=== PATIENT | female | born 1950 | race African-American/Black ===

== ENCOUNTER 2017-05-17 07:11 | Day surgery (SDC) | payer MEDICARE, OTHER ==
[~2017-05-17 07:11] MED LIST: BUPIVACAINE HCL 0.75% INJ/PF (7.5 MG/1 ML) 10 ML SDV OD PRN; FENTANYL CITRATE INJ/PF 100 MCG/2 ML AMPUL ONE; KETOROLAC TROMETHAMINE 0.45% 4 DROP/0.4 ML DROPERETTE OD PRN; LIDOCAINE 4% INJ/PF (40 MG/ML) 5 ML AMPUL OD PRN; MIDAZOLAM 2 MG/2 ML INJ ONE; ONDANSETRON HCL INJ/PF 4 MG/2 ML SDV ONE
[2017-05-17] MEDS ORDERED: LIDOCAINE 1% INJ-PF (10 MG/ML) 30 ML SDV ONE (07:34)
[2017-05-17] MEDS ORDERED: PHENYLEPHRINE/KETOROLAC 1%-0.3% 4 ML VIAL ONE (07:34)
[2017-05-17] MEDS ORDERED: CHONDR SU A NA/HYALUR INTRAOC KIT (SURGICARE) ONE (07:35)
[2017-05-17] MEDS ORDERED: HYALURONATE SODIUM SYRINGE 0.55 ML ONE (07:36)
[2017-05-17] MEDS: TETRACAINE HCL 0.5% OPH SOLN 0.6 ML DROPERETTE OD PRN ×2 (07:51→08:19)
[2017-05-17] MEDS: CYCLOPENTOLATE 0.2%/PHENYLEPHRINE 1% OPH SOLN 2 ML OD PRN ×3 (07:51→08:08)
[2017-05-17] MEDS: BESIFLOXACIN HCL 0.6% OPH SUSP 5 ML BOTTLE OD PRN ×4 (07:51→09:26)
[2017-05-17] MEDS: TROPICAMIDE 1% OPH SOLN 3 ML OD PRN ×3 (07:51→08:08)
--- NOTE | 2017-05-18 16:12 | [facility] OPERATIVE REPORT E ---
[facility] Operative Report NAME: KYLE HENLEY AGE: 66Y DATE OF SURGERY: 05/17/2017 ROOM: PREOPERATIVE DIAGNOSES: 1. Cataract, right eye. 2. Glaucoma, right eye. END OF DICTATION DICTATING PHYSICIAN: ANDRE YANES M.D. [id number] PHY#: [id number] ID: [id number] JOB#: [id number] ACCT: [id number] cc:ANDRE YANES M.D. >
--- NOTE | 2017-06-06 18:47 | [facility] DISCHARGE SUMMARY E ---
[facility] Discharge Summary NAME: KYLE HENLEY AGE: 66Y ADMITTED: 05/17/2017 DISCHARGED: 05/17/2017 PREOPERATIVE DIAGNOSES: 1. CATARACT, RIGHT EYE. 2. MILD PRIMARY OPEN ANGLE GLAUCOMA, RIGHT EYE. POSTOPERATIVE DIAGNOSES: 1. CATARACT, RIGHT EYE. 2. MILD PRIMARY OPEN ANGLE GLAUCOMA, RIGHT EYE. HISTORY OF PRESENT ILLNESS AND HOSPITAL COURSE: The patient is a 66-year-old lady who underwent uneventful cataract extraction with intraocular lens implant with insertion of iStent in the right eye, on 05/17/2017. She will be discharged to home. She is instructed to resume preoperative medications, including her timolol drops twice a day, to use Durezol, Ilevro, and Besivance at 3:00 p.m. and 8:00 p.m., and to followup in my office in 1 day. DICTATING PHYSICIAN: ANDRE YANES M.D. [id number] PHY#: [id number] ID: [id number] JOB#: [id number] ACCT: [id number] cc:ANDRE YANES M.D. >
--- NOTE | 2017-06-06 18:47 | [facility] OPERATIVE REPORT E ---
[facility] Operative Report NAME: KYLE HENLEY AGE: 66Y DATE OF SURGERY: 05/17/2017 ROOM: PREOPERATIVE DIAGNOSES: 1. CATARACT, RIGHT EYE. 2. MILD PRIMARY OPEN ANGLE GLAUCOMA, RIGHT EYE. POSTOPERATIVE DIAGNOSES: 1. CATARACT, RIGHT EYE. 2. MILD PRIMARY OPEN ANGLE GLAUCOMA, RIGHT EYE. PROCEDURE PERFORMED: Cataract extraction with intraocular lens implant, right eye, with addition of iStent, right eye. SURGEON: ANDRE YANES M.D. ANESTHESIA: Topical with MAC. INDICATION FOR SURGERY: Difficulty reading road signs and scroll on TV, nighttime glare. DESCRIPTION OF PROCEDURE: The patient was brought to the operating room and topical anesthesia was administered. This consisted of instrument wipe pledgets soaked in a solution of 4% Xylocaine mixed with 0.75% Marcaine in a 1:2 ratio. A 2 x 1 cm pledget was placed in the superior fornix. A 1 x 1 cm pledget was placed in the inferior fornix. The eye was patched shut for 5 minutes. The patch was removed. The eye was sterilely prepped and draped in the usual manner. Lid speculum was placed in the eye. 4-0 black silk sutures were placed around the superior and the inferior rectus muscles to be used as traction. A paracentesis was created at the 6 o'clock position and 0.5 mL of intraocular lidocaine was injected into the eye. A clear corneal incision was made at the temporal position. Viscoelastic was placed in the anterior chamber. An anterior capsulotomy was performed using Utrata forceps in a capsulorrhexis fashion. Hydrodissection and hydrodelineation were performed. Phacoemulsification was performed in [id number] technique. A total of 5.24 CDE total phaco time was used. Following this, the I/A unit was used to remove residual cortex. Viscoelastic was injected into the capsular bag. Intraocular lens model SN60WF, 21.0 diopters, serial number [id number], was injected into the capsular bag. Additional Provist was placed in the anterior chamber. The microscope was rotated 30 degrees as well as the head was rotated 30 degrees. The Gonio prism was placed on the eye and visualization of the anterior chamber angle was achieved with good visualization of the trabecular meshwork. The iStent was opened and placed in the eye and the iStent was placed into the trabecular mesh work. The iStent was positioned nicely with blood reflux through the lumen. The I/A unit was used to remove residual viscoelastic. The wound was seen to be watertight under high and low pressure, and no sutures were placed. The 4-0 black silk sutures and lid speculum were removed. The eye was shielded after Besivance drops were placed in the eye. The patient tolerated the procedure well and was sent to the recovery room in good condition. DICTATING PHYSICIAN: ANDRE YANES M.D. [id number] PHY#: [id number] ID: [id number] JOB#: [id number] ACCT: [id number] cc:ANDRE YANES M.D. > MTDD
== END 2017-05-17 10:18 | disposition home or self-care (01) ==
LOC: SC 07:11
PROVIDERS: ATTEND Ophthalmology
PROC: 089230Z Drainage of Right Anterior Chamber with Drainage Device, Percutaneous Approach (ICD-10-PCS; 2017-05-17)
PROC: 08RJ3JZ Replacement of Right Lens with Synthetic Substitute, Percutaneous Approach (ICD-10-PCS; principal; 2017-05-17 08:45)
DX: H25.813 Combined forms of age-related cataract, bilateral (principal); H57.03 Miosis; H40.1131 Primary open-angle glaucoma, bilateral, mild stage; H04.123 Dry eye syndrome of bilateral lacrimal glands; E11.9 Type 2 diabetes mellitus without complications; M19.90 Unspecified osteoarthritis, unspecified site; I10 Essential (primary) hypertension; G47.30 Sleep apnea, unspecified; Z79.899 Other long term (current) drug therapy; Z88.8 Allergy status to other drugs, medicaments and biological substances; Z79.82 Long term (current) use of aspirin; Z79.84 Long term (current) use of oral hypoglycemic drugs; Z79.4 Long term (current) use of insulin; Z86.73 Personal history of transient ischemic attack (TIA), and cerebral infarction without residual deficits
CPT/HCPCS: 0191T; 66984; 142; 82962; C1783; C9447; J2250; J2405; J3010; J3490; V2632

== ENCOUNTER 2017-06-14 07:24 | Day surgery (SDC) | payer MEDICARE ==
[~2017-06-14 07:24] MED LIST changes: -BUPIVACAINE HCL 0.75% INJ/PF (7.5 MG/1 ML) 10 ML SDV OD PRN; +BUPIVACAINE HCL 0.75% INJ/PF (7.5 MG/1 ML) 10 ML SDV OS PRN; -FENTANYL CITRATE INJ/PF 100 MCG/2 ML AMPUL ONE; -KETOROLAC TROMETHAMINE 0.45% 4 DROP/0.4 ML DROPERETTE OD PRN; +KETOROLAC TROMETHAMINE 0.45% 4 DROP/0.4 ML DROPERETTE OS PRN; -LIDOCAINE 4% INJ/PF (40 MG/ML) 5 ML AMPUL OD PRN; +LIDOCAINE 4% INJ/PF (40 MG/ML) 5 ML AMPUL OS PRN; -MIDAZOLAM 2 MG/2 ML INJ ONE; -ONDANSETRON HCL INJ/PF 4 MG/2 ML SDV ONE
[2017-06-14] MEDS ORDERED: PHENYLEPHRINE/KETOROLAC 1%-0.3% 4 ML VIAL ONE (07:47)
[2017-06-14] MEDS ORDERED: LIDOCAINE 1% INJ-PF (10 MG/ML) 30 ML SDV ONE (07:48)
[2017-06-14] MEDS ORDERED: CHONDR SU A NA/HYALUR INTRAOC KIT (SURGICARE) ONE (07:48)
[2017-06-14] MEDS: LIDOCAINE 3.5% OPH GEL/PF 1 ML/TUBE OS PRN ×2 (08:09→08:39)
[2017-06-14] MEDS: TROPICAMIDE 1% OPH SOLN 3 ML OS PRN ×3 (08:10→08:37)
[2017-06-14] MEDS: CYCLOPENTOLATE 0.2%/PHENYLEPHRINE 1% OPH SOLN 2 ML OS PRN ×3 (08:10→08:37)
[2017-06-14] MEDS: BESIFLOXACIN HCL 0.6% OPH SUSP 5 ML BOTTLE OS PRN ×4 (08:10→09:49)
[2017-06-14] MEDS ORDERED: FENTANYL CITRATE INJ/PF 100 MCG/2 ML AMPUL ONE (08:35)
[2017-06-14] MEDS ORDERED: MIDAZOLAM 2 MG/2 ML INJ ONE (08:35)
[2017-06-14] MEDS: HYALURONATE SODIUM SYRINGE 0.55 ML ONE ×2 (09:38)
--- NOTE | 2017-06-14 16:02 | [facility] OPERATIVE REPORT E ---
[facility] Operative Report NAME: KYLE HENLEY AGE: 66Y DATE OF SURGERY: 06/14/2017 ROOM: PREOPERATIVE DIAGNOSES: 1. Cataract, left eye. 2. Glaucoma, left eye. POSTOPERATIVE DIAGNOSES: 1. Cataract, left eye. 2. Glaucoma, left eye. PROCEDURE PERFORMED: 1. Phacoemulsification with posterior chamber intraocular lens, left eye. 2. Insertion of iStent, left eye. SURGEON: ANDRE YANES M.D. ANESTHESIA: Topical with MAC plus intraocular lidocaine. PROCEDURE: Patient was brought to the operating room and instrument wipe pledgets were placed underneath the upper and lower lids. These pledgets were soaked in 2% Xylocaine with epinephrine mixed with 0.75% Marcaine. The eye was patched shut for 5 minutes, patch and pledgets removed. The eye was sterilely prepped and draped in the usual manner. A lid speculum was placed in the eye. The 4-0 black silk sutures were placed around the superior and inferior rectus muscles to use as traction. A sharp blade was used to create a paracentesis site at the 5 o'clock position, 0.2 mL of 1% nonpreserved lidocaine was injected into the anterior chamber. A clear corneal incision was made with a 2.4-mm blade temporally. Viscoelastic was placed in the anterior chamber and anterior capsulotomy was performed using Utrata forceps in a capsulorrhexis fashion. Hydrodissection and hydrodelineation were performed. Phacoemulsification was performed in a exxoel-xjm-[id number] technique. A total of 44 seconds total phaco time was used. Following this the I/A unit was used to remove residual cortex. Viscoelastic was injected into the capsular bag. Intraocular lens model SN60WF, 20.0 diopters, serial number [id number], was injected into the capsular bag. Additional Provisc was placed in the eye and viscoelastic was placed on the cornea. The eye was rotated 30 degrees nasally as well as the microscope was also rotated. Gonioprism was placed in the eye and the trabecular meshwork was easily visualized. The iStent was opened and placed into the trabecular meshwork. However, on removing the auto technician, the iStent dislodged. This was taken out of the eye and regrasped. Additional Provisc was placed in the eye and viscoelastic on the cornea. The iStent was placed successfully on the second attempt. There was good reflux through the lumen of the iStent. The I/A unit was then used to remove residual viscoelastic. The wound was seen to be watertight under high and low pressure, and no sutures were placed. The 4-0 black silk sutures and lid speculum were removed. The eye was shielded after Besivance drops were placed. The patient tolerated the procedure well and was sent to the recovery room in good condition. DICTATING PHYSICIAN: ANDRE YANES M.D. [id number] PHY#: [id number] ID: [id number] JOB#: [id number] ACCT: [id number] cc:ANDRE YANES M.D. >
--- NOTE | 2017-06-14 16:02 | [facility] DISCHARGE SUMMARY E ---
[facility] Discharge Summary NAME: KYLE HENLEY AGE: 66Y ADMITTED: 06/14/2017 DISCHARGED: 06/14/2017 FINAL DIAGNOSES: 1. Cataract, left eye. 2. Glaucoma, left eye. HOSPITAL COURSE: The patient is a 66-year-old who underwent uneventful cataract extraction with insertion of iStent, left eye, on 06/14/2017. She will be discharged to home. She was instructed to resume preoperative medications, to take Tylenol as needed for discomfort, to keep her eye shielded, to use Pred Forte, Ilevro and Vigamox at 3 p.m. and 8 p.m., to continue her Timolol drops twice a day, and to follow up in my office in 1 day. DICTATING PHYSICIAN: ANDRE YANES M.D. [id number] PHY#: [id number] ID: [id number] JOB#: [id number] ACCT: [id number] cc:ANDRE YANES M.D. >
== END 2017-06-14 10:24 | disposition home or self-care (01) ==
LOC: SC 07:24
PROVIDERS: ATTEND Ophthalmology
PROC: 089330Z Drainage of Left Anterior Chamber with Drainage Device, Percutaneous Approach (ICD-10-PCS; 2017-06-14)
PROC: 08RK3JZ Replacement of Left Lens with Synthetic Substitute, Percutaneous Approach (ICD-10-PCS; principal; 2017-06-14 08:30)
DX: H25.812 Combined forms of age-related cataract, left eye (principal); H57.03 Miosis; H40.1131 Primary open-angle glaucoma, bilateral, mild stage; Z96.1 Presence of intraocular lens; Z98.41 Cataract extraction status, right eye; I10 Essential (primary) hypertension; E11.9 Type 2 diabetes mellitus without complications; Z79.84 Long term (current) use of oral hypoglycemic drugs; Z79.4 Long term (current) use of insulin; Z79.82 Long term (current) use of aspirin
CPT/HCPCS: 0191T; 66984; 142; 82962; A9270 GY; C1783; C9447; J2250; J3010; J3490; V2632

== ENCOUNTER 2017-11-12 13:39 | Emergency (ER) | payer MEDICARE ==
[2017-11-12] MEDS ORDERED: OXYCODONE-ACETAMINOPHEN 5-325 MG TABLET PO ONE (14:54)
--- NOTE | 2017-11-12 15:01 | ER Document Report ---
ED Extremity Problem, Lower - General Chief Complaint: Ankle Pain Stated Complaint: ANKLE INJURY Time Seen by Provider: 11/12/17 13:56 Mode of Arrival: Ambulatory Information source: Patient Notes: 67-year-old female presents to ED for complaint of left ankle and foot pain she states she fell on Tuesday and thought she could just elevated that she is and she would be okay but the pain is not getting better. She came to the emergency room to get her leg and foot x-ray. TRAVEL OUTSIDE OF THE [place] IN LAST 30 DAYS: No - HPI Patient complains to provider of: Injury, Pain, Swelling Location: Ankle, Foot Occurred: Other - Tuesday Where: Home Onset/Duration: Gradual, Persistent Quality of pain: Achy, Sharp, Throbbing Severity: Severe Pain Level: 5 Context: Fell Recent injury: Yes Associated symptoms: Painful ambulation, Other - Bruising to the right foot and ankle Exacerbated by: Hanging down, Movement, Walking Relieved by: Nothing - Related Data Allergies/Adverse Reactions: No Known Allergies Allergy (Unverified 05/11/17 12:16) Past Medical History - General Information source: Patient - Social History Smoking Status: Never Smoker Cigarette use (# per day): No Chew tobacco use (# tins/day): No Smoking Education Provided: No Frequency of alcohol use: None Drug Abuse: None Occupation: Retired Lives with: Family Family History: Arthritis, CAD, DM, Hyperlipidemia, Hypertension, Malignancy. denies: COPD, CVA, Thyroid Disfunction Patient has suicidal ideation: No Patient has homicidal ideation: No - Past Medical History Cardiac Medical History: Reports: Hx Hypercholesterolemia, Hx Hypertension Pulmonary Medical History: Reports: Hx Sleep Apnea EENT Medical History: Reports: None Neurological Medical History: Reports: None Endocrine Medical History: Reports: None Renal/ Medical History: Reports: None Malignancy Medical History: Reports: None GI Medical History: Reports: None Musculoskeltal Medical History: Reports Hx Arthritis, Reports Hx Musculoskeletal Deformity, Reports Hx Musculoskeletal Trauma Skin Medical History: Reports None Psychiatric Medical History: Reports: None Traumatic Medical History: Reports: Hx Fractures Infectious Medical History: Reports: None Past Surgical History: Reports: Hx Cholecystectomy, Hx Hysterectomy, Hx Orthopedic Surgery - Bone spurs removed, Other - Cataract bilateral and lump removed from left neck - Immunizations Immunizations up to date: Yes Review of Systems - Review of Systems Constitutional: No symptoms reported EENT: No symptoms reported Cardiovascular: No symptoms reported Respiratory: No symptoms reported Gastrointestinal: No symptoms reported Genitourinary: No symptoms reported Female Genitourinary: No symptoms reported Musculoskeletal: Ankle swelling, Other - Left ankle and foot pain. Swollen Skin: No symptoms reported Hematologic/Lymphatic: No symptoms reported Neurological/Psychological: No symptoms reported -: Yes All other systems reviewed and negative Physical Exam - Vital signs Vitals: Temp Pulse Resp BP Pulse Ox 98.7 F 96 18 160/75 H 96 11/12/17 13:45 11/12/17 13:45 11/12/17 13:45 11/12/17 13:45 11/12/17 13:45 Interpretation: Normal - General General appearance: Appears well, Alert - HEENT Head: Normocephalic, Atraumatic Eyes: Normal Pupils: PERRL - Respiratory Respiratory status: No respiratory distress Chest status: Nontender Breath sounds: Normal Chest palpation: Normal - Cardiovascular Rhythm: Regular Heart sounds: Normal auscultation Murmur: No - Abdominal Inspection: Normal Distension: No distension Bowel sounds: Normal Tenderness: Nontender Organomegaly: No organomegaly - Back Back: Normal, Nontender - Extremities General upper extremity: Normal inspection, Nontender, Normal color, Normal ROM , Normal temperature General lower extremity: Normal temperature Ankle: Tender, Ecchymosis, Edema, Limited ROM, Unable to bear weight - Pain with weightbearing. No: Abrasion, Deformity, Instability, Laceration Foot: Tender, Ecchymosis, Edema, Metatarsal compress. pain, No evidence of FB, Unable to bear weight - Pain with weightbearing. No: Abrasion, Deformity, Instability, Nail injury, Navicular tenderness, Puncture wound, Tender 5th metatarsal - Neurological Neuro grossly intact: Yes Cognition: Normal Orientation: AAOx4 Gildardo Coma Scale Eye Opening: Spontaneous Makinen Coma Scale Verbal: Oriented Gildardo Coma Scale Motor: Obeys Commands Gildardo Coma Scale Total: 15 Speech: Normal Motor strength normal: LUE, RUE, LLE, RLE Sensory: Normal - Psychological Associated symptoms: Normal affect, Normal mood - Skin Skin Temperature: Warm Skin Moisture: Dry Skin Color: Normal Course - Re-evaluation Re-evalutation: 11/12/17 15:30 X-ray discussed with patient and CD and written report given to patient for her fractured lateral malleolus and talus. Patient was put in a posterior ankle splint and given crutches instructions given for elevation and ice. Patient was treated with Percocet in the ED and sent home with a prescription for Percocet. Patient goes to a primary doctor and [place] so I gave her the local orthopedic and gave her a CD in case she decides to go to orthopedics and [place]. - Vital Signs Vital signs: Temp Pulse Resp BP Pulse Ox 98.7 F 96 18 146/63 H 96 11/12/17 13:45 11/12/17 13:45 11/12/17 13:45 11/12/17 15:34 11/12/17 13:45 - Diagnostic Test Radiology reviewed: Image reviewed, Reports reviewed Procedures - Immobilization Left Ankle Time completed: 15:31 Immobilizer type: Crutches, Posterior ankle Performed by: PCT Post-Proc Neuro Vasc Exam: Normal Alignment checked and good: No - Slight displaced fractures. No reductions done. Splint applied. Discharge - Discharge Clinical Impression: Avulsion fracture of left talus Qualifiers: Encounter type: initial encounter Fracture type: closed Fracture alignment: displaced Qualified Code(s): S92.152A - Displaced avulsion fracture (chip fracture) of left talus, initial encounter for closed fracture Fracture of lateral malleolus of left ankle Qualifiers: Encounter type: initial encounter Fracture type: closed Fracture alignment: displaced Qualified Code(s): S82.62XA - Displaced fracture of lateral malleolus of left fibula, initial encounter for closed fracture HTN (hypertension) Qualifiers: Hypertension type: unspecified Qualified Code(s): I10 - Essential (primary) hypertension Condition: Stable Disposition: HOME, SELF-CARE Additional Instructions: Fracture of Distal Fibula You have a fracture at the end of the fibula, the smaller bone in the lower leg. The fracture is across the bony bump on the outer side of the ankle. This fracture will usually heal well, but must be protected from the pull of ligaments and tendons at the ankle. If this fracture rotates out of position (or is felt likely to rotate), it must be operated on. Initially, the extremity should be kept elevated, with ice packs applied frequently. This fracture is usually treated with a cast or walking boot. If a walking boot has been selected, it's critical that it NOT be removed without the doctor's approval, not even for sleeping or baths. Healing of this fracture takes about four to eight weeks. Younger patients heal more quickly. An X-ray is usually required during healing to check for complications and to assess healing. Call the doctor or return at once if there is severe swelling, increasing pain, or numbness in the foot. Foot Fracture You have a fracture in one of the small bones of the foot. Some foot fractures are very serious, while others are no more serious than a sprain. This fracture should heal well, but requires protection for proper healing. Initially, you should elevate and ice pack the foot, and bear no weight on it. Usually, a cast or a walking boot will be required. Some milder foot fractures can be managed with temporary rest, then a firm shoe. Your physician has determined the seriousness of your foot fracture and has outlined the treatment plan for you. You should follow up as instructed to insure that the fracture heals without complications. Call the doctor or return at once if pain or swelling becomes severe, if a re-injury occurs, or if any part of the foot becomes numb. SPLINT PRECAUTIONS: A splint has been placed. This will protect the area while healing begins. Your problem does NOT normally require a cast. It MUST, however, be held still! Keep the splint on ALL THE TIME until instructed to remove it by the doctor. As you begin to use the area, be careful. You shouldn't do anything which causes discomfort -- you may disturb the injury even with the splint in place. After the initial period of rest and elevation, if splint does not prevent pain when you move, come back. You may require placement of a different splint , or a cast. If there is unexpected severe pain, or numbness, discoloration, or swelling beyond the splint, you should return at once. If you feel that the splint has broken or become loose, come back. USE OF CRUTCHES: The doctor has recommended that you not bear weight at this time. You will need to use crutches. Adjust the crutches so the tops come to about two inches under the armpit while you are standing upright. Use your hands -- not your armpits -- to support your weight. To get into a chair, support yourself with one crutch on the injured side. Hold the chair with the other hand, then lower yourself while putting all your weight on the good leg. Going up stairs is `good leg up, step up, then bring up crutches and bad leg.' Down stairs is `bad leg and crutches down, then bring good leg down.' If you develop numbness or swelling in an arm or hand, you are using the crutches incorrectly. Return if you are having any problems with the crutches. ICE & ELEVATION: Apply ice packs frequently against the painful area. Many different schedules are recommended, such as "20 minutes on, 20 minutes off" or "one hour ice, two hours rest." If you need to work, you may need to go longer between ice treatments. You should plan to have the area ice packed AT LEAST one- fourth of the time. The ice should be applied over the wrap, tape, or splint, or over a layer of cloth -- not directly against the skin. Some ice bags have a built-in cloth and can be put directly on the skin. Your injured part should be elevated as much as possible over the next 48 hours. Try to keep the injury above the level of the heart. Avoid use of the injured area. Elevation and rest will decrease the swelling. ORAL NARCOTIC MEDICATION: You have been given a prescription for pain control. This medication is a narcotic. It's best taken with food, as nausea can result if taken on an empty stomach. Don't operate machinery or drive within six hours of taking this medication. Do not combine this medicine with alcohol, or with any medication which can cause sedation (such as cold tablets or sleeping pills) unless you get permission from the physician. Narcotics tend to cause constipation. If possible, drink plenty of fluids and eat a diet high in fiber and fruits. Please be aware that prescription narcotics also have the potential for abuse. People become addicted to these medications because of the general sense of wellbeing that they induce. This feeling along with a significant reduction in tension, anxiety, and aggression provides a stimulating seductive quality to these drugs. Once your pain is under control, we encourage you to discard your unused narcotics. FOLLOW-UP CARE: If you have been referred to a physician for follow-up care, call the physician s office for an appointment as you were instructed or within the next two days. If you experience worsening or a significant change in your symptoms, notify the physician immediately or return to the Emergency Department at any time for re-evaluation. Prescriptions: Oxycodone HCl/Acetaminophen [Percocet 5-325 mg Tablet] 1 tab PO Q6HP PRN #15 tablet PRN Reason: Forms: Elevated Blood Pressure Referrals: MICHELLE ROGEL DO [ACTIVE STAFF] - Follow up as needed
--- NOTE | 2017-11-12 15:10 | RADIOLOGY REPORT (SQ) ---
EXAM DESCRIPTION: ANKLE LEFT COMPLETE; FOOT LEFT COMPLETE COMPLETED DATE/TIME: 11/12/2017 2:18 pm REASON FOR STUDY: fall pain COMPARISON: None. NUMBER OF VIEWS: Six views. TECHNIQUE: AP, lateral, and oblique radiographic images acquired of the left ankle. AP, lateral, and oblique radiographic images acquired of the left foot. LIMITATIONS: None. FINDINGS: MINERALIZATION: Normal. BONES: There is a mildly displaced avulsion fracture at the tip of the lateral malleolus. The ankle mortise is maintained. There is a mildly displaced avulsion fracture at the dorsal talus. There is calcaneal enthesopathy. JOINTS: Small effusion at the ankle. SOFT TISSUES: There is diffuse soft tissue swelling at the visualized lower leg, ankle and foot. No radiopaque foreign body is noted. IMPRESSION: Avulsion fracture at the lateral malleolus. Avulsion fracture at the dorsal talus. Small joint effusion at the left ankle. Diffuse soft tissue swelling. TECHNICAL DOCUMENTATION: JOB ID: [id number] 2010 [employer]- All Rights Reserved
--- NOTE | 2017-11-12 15:10 | RADIOLOGY REPORT (SQ) ---
EXAM DESCRIPTION: ANKLE LEFT COMPLETE; FOOT LEFT COMPLETE COMPLETED DATE/TIME: 11/12/2017 2:18 pm REASON FOR STUDY: fall pain COMPARISON: None. NUMBER OF VIEWS: Six views. TECHNIQUE: AP, lateral, and oblique radiographic images acquired of the left ankle. AP, lateral, and oblique radiographic images acquired of the left foot. LIMITATIONS: None. FINDINGS: MINERALIZATION: Normal. BONES: There is a mildly displaced avulsion fracture at the tip of the lateral malleolus. The ankle mortise is maintained. There is a mildly displaced avulsion fracture at the dorsal talus. There is calcaneal enthesopathy. JOINTS: Small effusion at the ankle. SOFT TISSUES: There is diffuse soft tissue swelling at the visualized lower leg, ankle and foot. No radiopaque foreign body is noted. IMPRESSION: Avulsion fracture at the lateral malleolus. Avulsion fracture at the dorsal talus. Small joint effusion at the left ankle. Diffuse soft tissue swelling. TECHNICAL DOCUMENTATION: JOB ID: [id number] 2010 [employer]- All Rights Reserved
[2017-11-12 15:35] VITALS: BP 146/63
== END 2017-11-12 15:46 | disposition home or self-care (01) ==
LOC: ER 13:39
PROC: 2W3RX1Z Immobilization of Left Lower Leg using Splint (ICD-10-PCS; principal; 2017-11-12)
DX: S92.152A Displaced avulsion fracture (chip fracture) of left talus, initial encounter for closed fracture (principal); S82.62XA Displaced fracture of lateral malleolus of left fibula, initial encounter for closed fracture; W19.XXXA Unspecified fall, initial encounter; Y92.009 Unspecified place in unspecified non-institutional (private) residence as the place of occurrence of the external cause; I10 Essential (primary) hypertension; E78.00 Pure hypercholesterolemia, unspecified; Z90.49 Acquired absence of other specified parts of digestive tract; Z90.710 Acquired absence of both cervix and uterus
CPT/HCPCS: 99283; 73610; 73630; 29515; A9270